=== PATIENT | male | born 1970 | race Caucasian/White ===

== ENCOUNTER 2023-11-27 12:23 | Outpatient (CLI) | payer OTHER ==
[2023-11-27] MEDS ORDERED: Iopamidol 300 61% 100 ML VIAL FS ONE (12:28)
== END 2023-11-27 12:24 | disposition home or self-care (01) ==
LOC: CSHCT 12:23
PROVIDERS: ATTEND Urology
DX: R91.1 Solitary pulmonary nodule (principal)
CPT/HCPCS: 71260; 82565; Q9967